=== PATIENT | male | born 1975 | race Caucasian/White ===

== ENCOUNTER 2021-08-19 16:06 | Emergency (ER) | payer OTHER, SELFPAY ==
[2021-08-19] VITALS (35 sets, daily range): BP systolic 122–164; BP diastolic 71–109; PULSE 54–112; RESP 13–56; TEMP 36.2–36.6; O2SAT 93–98
--- NOTE | 2021-08-19 16:00 | RT.EKG_ITS ---
APPROVED REPORT Exam: Resting ECG Reason for Exam: chest pain Patient Location: E HR:84 bpm ECG Measurements Heart Rate 84 AXIS HI 147 P 44 QRSd 127 QRS 5 QT 391 T 10 QTc 462 Conclusion Sinus rhythm. Nonspecific intraventricular conduction delay
--- NOTE | 2021-08-19 16:00 | DI.RAD_ITS ---
Exam(s) XR PORTABLE CHEST AP EXAM: XR PORTABLE CHEST AP CLINICAL HISTORY: L chest pain. TECHNIQUE: 2D digital imaging was performed. COMPARISON: No exams were available for comparison FINDINGS: Heart size is upper normal. The mediastinum is not widened. No obvious infiltrates nor pleural effusions. No pulmonary edema. No pneumothorax. IMPRESSION: No obvious infiltrates evident on this single portable view of the chest. DATA REPOSITORY: RADIATION DOSE DELIVERED: All CT scans at this facility use at least one of these dose optimization techniques: automated exposure control; mA and/or kV adjustment per patient size (includes targeted e xams where dose is matched to clinical indication); or iterative reconstruction.
--- NOTE | 2021-08-19 16:24 | W.ED.GENAD ---
Discharge Plan Disposition Patient Disposition: HOME Condition: Improving Discharge Details Clinical Impression: Pneumonitis Primary Care Provider: Unknown,Unknown ED Provider: Bright Abreu Home Meds and New Rx's Prescriptions: New doxycycline hyclate 100 mg capsule 100 mg PO BID 10 Days Qty: 20 RF: 0 Discharge Instructions Additional Instructions: Your COVID-19 test was negative. You underwent cardiac testing with negative troponins. Please take doxycycline as prescribed. You are given the first dose this evening. Return to the ER for any acute concerns. Discharge Data Discharge Date/Time-TO BE ENTERED AT DEPARTURE: 08/19/21 19:38 Medical Decision Making 46-year-old male who is incarcerated [facility] [place] [facility]. Reports he had the onset of intermittent left anterior chest pain today at 3 PM. States is similar to previous episodes he has had in the past which were treated with medication for 2 months. He otherwise with regards in attendance, afebrile, oxygenating normally. His exam is reassuring. IV access established, screening labs obtained. As patient is not and is not immunized against COVID-19 a surveillance COVID-19 swab was obtained. He referred for blood work, EKG and chest x-ray Laboratories show a white count of 9 hematocrit 41, platelets 280. Chemistry is within normal limits. Troponin negative, patient observed on property assessment monitor, repeat troponin obtained and negative. COVID-19 test is negative. Chest x-ray with mild coarse airspace disease at both lung bases. No dense consolidation. Most consistent with developing pneumonitis. Will treat with antibiotics. HPI General Mode of arrival: EMS. Date/Time Provider Initiated Documentation: 08/19/21 16:12. Limitations to Documentation: no limitations. Information obtained by: patient and EMS. History of Present Illness 46 year old M presents to the emergency department with the chief complaint of left chest pain approximately 3 PM, intermittent, described as similar to prior episodes, and is localized to the chest and left. Patient reports no radiation. Patient started experiencing this hour(s) and it has been intermittent. No relieving factors improve symptom(s), Patient notes denies cough, fever/chills and shortness of breath. Patient did receive the following treatments prior to arrival, none Related Data Home Medications Medication Instructions Recorded Confirmed doxycycline hyclate 100 mg PO BID 10 Days #20 cap 08/19/21 Previous Rx's Medication Instructions Recorded doxycycline hyclate 100 mg PO BID 10 Days #20 cap 08/19/21 Allergies Allergy/AdvReac Type Severity Reaction Status Date / Time No Known Allergies Allergy Unverified 08/19/21 16:27 General Stated Complaint: Chest Pain OSIRIS: 2 Review of Systems Narrative: No recent cough, not immunized against COVID-19. No shortness of breath. States he had similar episode in the past in [place] that was treated with 2 months of medication. 8 systems reviewed and other patel negative [facility] Social History Smoking/Tobacco Use Status: Current every day Tobacco Type: cigarettes Years smoked: 15 Smoking risk assessment performed?: Yes Alcohol Intake: never Drug use: Daily Substance use type: opiates Do you feel safe at home: Yes Do you feel safe in your relationship?: Yes Exam Narrative Exam Narrative: GEN: awake, alert, oriented 3. Pleasant, well groomed, interactive. HEAD: Normocephalic, atraumatic ENT: Mucous membranes moist, oropharynx unremarkable, External ear exam unremarkable EYES: PERRL, EOMI NECK: Full ROM, no GLEN, no menigismus CHEST/RESP: Nontender, clear to auscultation bilateral, no wheeze/rhonchi/rales CARDIOVASCULAR: RRR, no murmur, rub abimbola. 2+ Rad pulse bilateral ABDOMEN: Soft, nontender, no mass. +Bowel sounds EXT: Full ROM, no edema, no rash Neuro: Grossly normal neurologic exam, conversant, interactive. Psych: Speech fluent, thoughts congruent, affect normal Course Vital Signs Vital signs: Vital Signs Temperature 36.6 C 08/19/21 16:16 Pulse Oximetry 98 08/19/21 16:16 Temperature 36.6 C 08/19/21 16:16 Temperature Source Tympanic 08/19/21 16:16 Blood Pressure Position Sitting 08/19/21 16:16 Pulse Oximetry 98 08/19/21 16:16 Oxygen Delivery Method Room Air 08/19/21 16:16 Oxygen Flow Rate 0 08/19/21 16:16 Pain Level 5 08/19/21 16:16
[2021-08-19 16:44] LABS: Source Nasal/Nares
[2021-08-19 16:45] LABS: Abs Immature Grans 0.05 10^3/uL (0.0-0.06); Absolute Basophil Count 0.03 10^3/uL (0.0-0.2); Absolute Eosinophil Count 0.12 10^3/uL (0.0-0.7); Absolute Lymphocyte Count 0.96 10^3/uL (1.2-3.4); Absolute Monocyte Count 0.43 10^3/uL (0.1-0.8); Absolute Neutrophil Count 7.76 10^3/uL (1.2-6.7); Basophils % 0.3; Eosinophils % 1.3; HCT 41.5 % (40.0-50.0); HGB 13.7 g/dL (13.5-17.5); Immature Grans % 0.5; Lymphocytes % 10.3; MCH 28.2 pg (27.0-33.0); MCV 85.6 fL (80-95); MPV 8.7 fL (8.0-11.0); Monocytes % 4.6; Nucleated RBC 0 %; Platelet Count 280 10^3/uL (130-400); RBC 4.85 10^6/uL (4.36-5.78); RDW 12.9 % (11.8-14.1); RDW-SD 39.6 fL; WBC 9.35 10^3/uL (4.4-10.8)
--- NOTE | 2021-08-19 17:08 | DI.VRAD_ITS ---
PROCEDURE INFORMATION: Exam: XR Chest Exam date and time: 08/19/2021 4:16 PM Age: 46 years old Clinical indication: Other: L chest pain TECHNIQUE: Imaging protocol: XR of the chest. Views: 1 view. Other technique: Portable exam. COMPARISON: No relevant prior studies available. FINDINGS: Lungs: There is some mild coarse airspace disease seen at both lung bases, left slightly worse than right. No dense consolidation evident. Pleural spaces: Unremarkable. No pleural effusion. No pneumothorax. Heart/Mediastinum: Unremarkable. No cardiomegaly. Bones/joints: Unremarkable. IMPRESSION: Minimal bibasilar airspace disease, left worse than right. Suspect mild pneumonitis or atelectasis. Dictated and Authenticated by: Brittany Mansfield MD. Ordering:BIJU Novoa MD
[2021-08-19 17:10] LABS: ALT 44 U/L (16-63); AST 24 U/L (15-37); Albumin 3.8 g/dL (3.4-5.0); Alkaline Phosphatase 64 U/L (46-116); Anion Gap 5.2 mmol/L (3-11); BUN 13 mg/dL (7-18); Bilirubin, Total 0.2 mg/dL (0.2-1.0); CO2 29.8 mmol/L (21.0-32.0); CREATININE 0.8 mg/dL (0.70-1.30); Calcium 9.1 mg/dL (8.5-10.1); Chloride 104 mmol/L (98-107); Glucose 112 mg/dL (74-106); Magnesium 2.3 mg/dL (1.8-2.4); Potassium 4.2 mmol/L (3.5-5.1); Sodium 139 mmol/L (136-145); Total Protein 7.9 g/dL (6.4-8.2)
[2021-08-19 17:11] LABS: Troponin I < 0.05 ng/mL (<0.06)
[2021-08-19 17:21] LABS: Bilirubin Negative (Negative); Blood Negative (Negative); Clarity Clear (Clear); Glucose Negative (Negative); Ketones Negative (Negative); Leukocyte Esterase Negative (Negative); Nitrite Negative (Negative); Specific Gravity <= 1.005 (1.005-1.025); Urobilinogen 0.2 EU/dL (Up TO 0.2)
[2021-08-19 18:52] LABS: COVID-19 PCR Negative (Negative)
[2021-08-19 19:16] LABS: Troponin I < 0.05 ng/mL (<0.06)
== END 2021-08-19 19:38 | disposition home or self-care (01) ==
PROVIDERS: Emergency Provider Emergency Medicine
DX: J18.9 Pneumonia, unspecified organism (principal); Z20.822 Contact with and (suspected) exposure to COVID-19; F17.210 Nicotine dependence, cigarettes, uncomplicated; R07.9 Chest pain, unspecified
CPT/HCPCS: 36415; 80053; 87635; 93005; 99284; 71045; 81003; 83735; 84484; 85025; 93010